=== PATIENT | female | born 1950 | race Caucasian/White ===

== ENCOUNTER → 2016-05-01 | Outpatient (CLI) | payer BC ==
[~2016-05-01] MED LIST: ASPIRIN81 M2 PO; HYDROCODON-ACE1 EAC7 PO; HYDROCODONE-APA1 T61 PO; LEVOXYL125 MCG PO; LOMOTIL 2.5-0.1 EACH PO; NEURONTIN100 MG PO; OMEPRAZOLE20 M2 PO; PAXIL PO; PAXIL10 MG PO; PRILOSEC PO; RED YEAST RICE600 M1 PO; SYNTHROID PO; TOPAMAX50 MG PO; VITAMIN D1000 UNIT PO; WELLBUTRIN XL PO; XYZAL5 MG PO; ZESTORETIC 20-1 EAC1 PO; ZESTORETIC 20/11 TAB PO; ZYRTEC10 M2 PO
--- NOTE | ~2016-05-01 | MY11 ---
[facility] A Service of [facility] RADIOLOGY TEXT RESULTS PATIENT: LEIF BRANTLEY LOCATION: [facility] : 54 UNIT #: [id number] AGE: [address]: Carroll Almazan MD SEX: F ORDER DR: [id number] [facility] [address] [place], [place] [address] [id number] O MR#: [id number] Acc #: [id number] NAME: LEIF BRANTLEY : 1950 SEX: F STUDY DATE/TIME: 05/01/2016 9:40 UNIT: [facility] ROOM: STUDY DESCRIPTION: MY Mammogram Screening Dig Rivas Attending Physician: Carroll Almazan M.D. Referring Physician: Carroll Almazan M.D. Ordering Physician: Carroll Almazan M.D. Primary Care Physician: Carroll Almazan M.D. MEDICAL IMAGING REPORT This report is preliminary unless electronic signature is present EXAM Bilateral Digital Screening Mammogram with CAD INDICATION Breast cancer screening. 65-year-old asymptomatic female. No personal or family history of breast cancer. COMPARISON January 23, 2015 December 02, 2012 September 04, 2011 June 13, 2010 November 17, 2005 FINDINGS There are scattered fibroglandular tissues. No suspicious findings are present. IMPRESSION No mammographic evidence of malignancy. Annual screening mammography and clinical breast exam are recommended. A result letter will be sent to the patient. Patients over the age of 40 are entered into a reminder system with target due date for the next mammogram. BIRADS: 1 Negative Dictated by... Karl Almazan M.D. THIS IS AN ELECTRONICALLY VERIFIED REPORT Karl Almazan M.D. at 05/04/2016 6:[address] [facility] A Service of [facility] RADIOLOGY TEXT RESULTS PATIENT: LEIF BRANTLEY LOCATION: [facility] : 54 UNIT #: [id number] AGE: [address]: Carroll Almazan MD SEX: F ORDER DR: ELLIOTT/whitney TD: 05/01/2016 16:05 JOB #: [id number] MEDICAL IMAGING REPORT COPY
== END | disposition home or self-care (01) ==
LOC: CWCC 09:06
DX: Z12.31 Encounter for screening mammogram for malignant neoplasm of breast (principal)
CPT/HCPCS: G0202

== ENCOUNTER → 2016-06-11 | Day surgery (SDC) | payer BC ==
--- NOTE | ~2016-06-11 | OR ---
Unit #: [id number] #: [id number] Patient: LEIF BRANTLEY [id number] [address] [address] [id number] O MR#: [id number] NAME: LEIF BRANTLEY ROOM: Date of Procedure: 06/11/2016 Admission Date: 06/11/2016 Surgeon: Paul Rosales M.D. : 1950 Attending Physician: Faheem Rosales Primary Care Physician: Carroll Almazan M.D. SURGERY CENTER OPERATIVE NOTE PROCEDURE PERFORMED Lumbar epidural steroid injection under x-ray guided needle placement with provider administered conscious sedation. PREOPERATIVE DIAGNOSES 1. Acute lumbar radiculitis. 2. Spinal stenosis, lumbosacral spine. 3. Herniated disk, L4-L5. 4. Degenerative joint disease, lumbosacral spine. 5. Degenerative disk disease, lumbosacral spine. INDICATIONS FOR PROCEDURE The patient presents today with longstanding history of chronic lumbar radicular pain, which is generally fairly well managed medically with ongoing continuous conservative measures. She does however occasionally experienced exacerbations, which break through her ongoing continuous conservative treatment and today, it is only responded to epidural steroid injections. She is currently experiencing just such an exacerbation and states her most recent epidural steroid injection gave her approximately 80% to 100% relief for 8 to 10 weeks. However over the course of past 2 to 4 weeks, she has developed a crescendo pattern pain which is broken through her ongoing conservative measures and has reached a point that she is desirous of a procedural treatment. After discussing risks and benefits of proceeding today with a lumbar approach epidural steroid injection utilizing dual needle at L4-L5 and L2-L3 access technique, the patient agreed this would be the appropriate course of action. DESCRIPTION OF PROCEDURE She was then taken to the operating room, where she was prepped and draped in a sterile manner. Standard monitors were applied. She was sedated with 2 mg of IV Versed initially and required additional 2 mg of IV Versed and 1 mL of IV fentanyl throughout the duration of procedure. Lumbar epidural space accessed at the L4-L5 and L2-L3 levels using loss of resistance technique and x-ray guidance. Needle placement was confirmed with injection of 2 mL of Omnipaque at each level. There was good superior and inferior flow at both of these injected levels. Total x-ray time for this dual needle placement was 13 seconds. Following successful needle placement confirmation, the patient received an injectate containing 4 mL normal saline and 40 mg of methylprednisolone at each level for a total injectate volume of 8 mL of normal saline and 80 mg of methylprednisolone. She tolerated this procedure well. She was discharged home with followup instructions, which include return to this clinic as early as 09/17/2016 if we could be of further service to her. Unit #: [id number] #: [id number] Patient: LEIF BRANTLEY Dictated by... Paul Rosales M.D. JRG/honorio TD: 06/12/2016 03:06 JOB #: [id number] CC: Carroll Almazan M.D. SURGERY CENTER OPERATIVE NOTE Page 1 of 1 X Faheem Rosales MD X PROCEDURE OPERATIVE NOTE
== END | disposition home or self-care (01) ==
LOC: CCSC 10:13
DX: G89.29 Other chronic pain (principal); M51.17 Intervertebral disc disorders with radiculopathy, lumbosacral region; M48.07 Spinal stenosis, lumbosacral region; K21.9 Gastro-esophageal reflux disease without esophagitis; K58.9 Irritable bowel syndrome, unspecified; Z90.710 Acquired absence of both cervix and uterus; Z96.653 Presence of artificial knee joint, bilateral; Z98.890 Other specified postprocedural states
CPT/HCPCS: J1040; J2250; J3010

== ENCOUNTER → 2016-09-24 | Day surgery (SDC) | payer BC ==
--- NOTE | ~2016-09-24 | OR ---
Unit #: [id number] #: [id number] Patient: LEIF BRANTLEY [id number] [address] [place], [place] [address] [id number] O MR#: [id number] NAME: LEIF BRANTLEY ROOM: Date of Procedure: 09/24/2016 Admission Date: 09/24/2016 Surgeon: Paul Rosales M.D. : 1950 Attending Physician: Paul Rosales M.D. Primary Care Physician: Carroll Almazan M.D. SURGERY CENTER OPERATIVE NOTE PROCEDURE PERFORMED Lumbar epidural steroid injection under x-ray guided needle placement with provider administered conscious sedation. PREOPERATIVE DIAGNOSES 1. Acute lumbar radiculitis. 2. Multiple levels herniated disk. 3. Spinal stenosis, lumbosacral spine. 4. Degenerative joint disease, lumbosacral spine. 5. Degenerative disk disease, lumbosacral spine. 6. Facet arthrosis, lumbosacral spine. INDICATIONS FOR PROCEDURE The patient presents today status post previous multiple epidural steroid injections for exacerbations of her chronic radicular pain. These epidural steroid injections have been successful together 60% to 80% for 6 to 8 weeks. She is managed medically fairly successfully though with ongoing medical management and physical activity that is self-directed. She presents today complaining of just such an exacerbation, which may have a component of facet arthralgia as well, which again has broken through her ongoing conservative management. After discussing risks and benefits of proceeding today with a dual needle technique epidural steroid injection utilizing the L5-S1 and L3-L4 levels, the patient now agreed this would be the appropriate course of action. We also discussed and agreed that referral to [facility] for potential radiofrequency ablation was worthy of consideration. Following these discussions as well as the discussion of return on 12/31/2016, the patient now agreed this would be the appropriate course of action. DESCRIPTION OF PROCEDURE She was then taken to the operating room, where she was prepped and draped in a sterile manner. Standard monitors were applied. She was sedated with 2 mg of IV Versed initially and required an additional 2 mg of IV Versed throughout the duration of the procedure. Lumbar epidural space was accessed using loss of resistance technique and x-ray guidance at the L5-S1 and L3-L4 levels. Total x-ray time for this dual needle access technique was 8 seconds. Successful confirmation was obtained by injecting 2 mL of Omnipaque at each level. There was good superior and inferior flow at both injectate levels. Following successful needle placement confirmation, the patient received an injectate containing 4 mL of normal saline and 40 mg of methylprednisolone at each site for a total injectate volume of 8 mL of normal saline and 80 mg of methylprednisolone. She tolerated this procedure well. She was discharged home with followup Unit #: [id number] #: [id number] Patient: LEIF BRANTLEY instructions which include return dates as described above. Dictated by... Toby Alexandra/honorio TD: 09/24/2016 16:12 JOB #: [id number] SURGERY CENTER OPERATIVE NOTE Page 1 of 1 X Faheem Rosales MD X PROCEDURE OPERATIVE NOTE
== END | disposition home or self-care (01) ==
LOC: CCSC 09-17 16:15
DX: G89.29 Other chronic pain (principal); M51.17 Intervertebral disc disorders with radiculopathy, lumbosacral region; M47.27 Other spondylosis with radiculopathy, lumbosacral region; M48.07 Spinal stenosis, lumbosacral region; E03.9 Hypothyroidism, unspecified; K21.9 Gastro-esophageal reflux disease without esophagitis; Z79.899 Other long term (current) drug therapy; Z90.710 Acquired absence of both cervix and uterus; Z96.653 Presence of artificial knee joint, bilateral; Z98.890 Other specified postprocedural states
CPT/HCPCS: J1040; J2250